=== PATIENT | male | born 1960 | race African-American/Black ===

== ENCOUNTER 2017-04-11 06:23 | Day surgery (SDC) | payer OTHER ==
[2017-04-10 09:24] VITALS: BMI 16.9
[~2017-04-11] VITALS: Ht 170.2 cm; Wt 54.2 kg
[2017-04-11] VITALS (10 sets, daily range): BP systolic 118–142; BP diastolic 80–94; PULSE 61–68; RESP 12–18; Ht 170.2 cm; Wt 54.2 kg
[2017-04-11] MEDS ORDERED: LIDOCAINE 2% (SDV) 5 ML INJ ONE (07:00)
--- NOTE | 2017-04-11 07:29 | HPN ---
Date/Time of Note Date/Time of Note DATE: 04/11/17 TIME: 07:28 Interval H&P Admission Note Pt. seen H&P reviewed: No system changes GUNNAR WEINBERG MD April 11, 2017 07:29
[2017-04-11] MEDS ORDERED: DIPHENHYDRAMINE 50 MG INJ IV PRN (08:30)
[2017-04-11] MEDS ORDERED: PROCHLORPERAZINE 10 MG INJ IV PRN (08:30)
[2017-04-11] MEDS ORDERED: MEPERIDINE 25 MG INJ IV PRN (08:30)
[2017-04-11] MEDS ORDERED: HYDROmorphONE (0.2 MG/ML) 10ML SYG IV PRN ×2 (08:30)
[2017-04-11] MEDS ORDERED: BUPIVACAINE 0.25% (MPF) 30 ML INJ ONE (08:44)
[2017-04-11] MEDS ORDERED: PROPOFOL 20 ML ONE (09:01)
[2017-04-11] MEDS ORDERED: MIDAZOLAM 1 MG/ML 2 ML INJ ONE (09:01)
[2017-04-11] MEDS ORDERED: FENTAnyl 50 MCG/ML VIAL ONE (09:01)
[2017-04-11] MEDS ORDERED: DEXAMETHASONE 4 MG/ML 1 ML INJ ONE (09:12)
[2017-04-11] MEDS ORDERED: CEFAZOLIN 1 GM INJ ONE (09:12)
[2017-04-11] MEDS ORDERED: ONDANSETRON 4 MG INJ ONE (09:12)
[2017-04-11] MEDS ORDERED: ONDANSETRON 4 MG INJ IV PRN (10:00)
[2017-04-11] MEDS ORDERED: OXYCODONE/ACETAMINOPHEN (5/325) TAB PO PRN ×2 (10:00)
--- NOTE | 2017-04-11 10:51 | OPR ---
DATE OF OPERATION: 04/11/2017 PREOPERATIVE DIAGNOSIS: Right inguinal hernia without obstruction. POSTOPERATIVE DIAGNOSIS: Right inguinal hernia without obstruction (indirect). PROCEDURE: 1. Repair with large plug. 2. Right inguinal nerve block. SURGEON: Gunnar Mckinley MD ANESTHESIA: General. ANESTHESIOLOGIST: Dr. Trujillo OPERATIVE REPORT: After satisfactory general anesthesia was achieved, the lower abdomen was prepped and draped in the usual fashion. A 3.5 cm transverse suprapubic right groin incision was made and carried down to the level of the external oblique aponeurosis, which was opened in the direction of its fibers. The cord was retracted and preserved. The floor of the canal was intact but weak. The re was a large indirect sac which was dissected to its base at the internal ring. The sac was trans fixed and suture ligated at the base with 2-0 Vicryl. Redundant sac was excised and submitted. The internal ring was occluded by placement of a large plug secured circumferentially to healthy fascia with interrupted 3-0 Vicryl suture. Next, the flat portion of the mesh was cut and fashioned to fi t in the floor of the canal as an overlay. It was anchored at the pubic tubercle with 2-0 Novafil, laterally to inguinal ligament with interrupted 2-0 Novafil, and medially to conjoined tendon with i nterrupted 2-0 Novafil. The mesh distal to the cord was reconstituted with a single suture of 3-0 V icryl, creating a new internal ring of appropriate size. The cord was replaced beneath the external oblique, which was closed with a running 3-0 Vicryl suture. Next, a right inguinal nerve block was performed, 10 mL of 0.25% Marcaine were injected into the fas liv 1 cm medial and inferior to the right anterior iliac spine. Ten more mL of local anesthetic wer e injected directly into the wound. Shari fascia was closed with interrupted 3-0 Vicryl and skin c losed with running 4-0 subcuticular Vicryl. Operative blood loss less than 10 mL. SPONGE AND NEEDLE COUNTS: Reported as correct x2. DISPOSITION: The patient tolerated the procedure well and without incident or complication. Dictated By: GUNNAR HOLLIS/CHON Conf#: [id number] DID#: [id number] CC: Gunnar Nolasco MD;*[facility]*
== END 2017-04-11 11:41 | disposition home or self-care (01) ==
LOC: SDS 06:23
PROVIDERS: ATTEND Surgery
DX: K40.90 Unilateral inguinal hernia, without obstruction or gangrene, not specified as recurrent (principal)
CPT/HCPCS: 49505; 88302; C1781; J0690; J1100; J2175; J2250; J2405; J3010; Z7512; Z7610